=== PATIENT | male | born 1955 | race African-American/Black ===

== ENCOUNTER 2017-09-19 14:46 | Emergency (ER) | payer OTHER ==
[~2017-09-19] VITALS: Ht 175.3 cm; Wt 72.6 kg
[2017-09-19 14:53] VITALS: BP 110/62
--- NOTE | 2017-09-19 14:56 | NUR ---
PATIENT TAKEN TO ER BED VIA EMS
--- NOTE | 2017-09-19 15:05 | NUR ---
PT BIBA, PT DEAF, UNABLE TO ANSWER QUESTIONS UNLESS WRITTEN DOWN. PT AAOX3, CONFUSED AT TIMES. REPORTS BEING DISCHARGED FROM [facility] 2 DAYS AGO FOR PNA, HAS BEEN HOMELESS SINCE LAST NIGHT. RESP EVEN AND UNALBORED, DENIES ANY PAIN , JUST GENERLAIZED WEAKNESS. ABD SOFT, NT. PT ABLE TO FOLLOW SIMPLE COMMANDS. AWARE THAT URINE SPECIMEN IS NEEDED. IV ESTABLISHED AND NS INFUSING ORDERED.
--- NOTE | 2017-09-19 15:12 | NUR ---
DR ACOSTA IN ROOM FOR EXAM.
[2017-09-19] MEDS ORDERED: NACL 0.9% 500 ML IV ONE ×2 (15:15)
[2017-09-19 15:44] LABS: BASOPHILS # (AUTO) 0.2 K/uL (0.00-0.22); BASOPHILS % (AUTO) 1.9 % (0.0-2.0); EOSINOPHILS # (AUTO) 0.1 K/uL (0-0.4); HEMATOCRIT 38.3 % (36-52); HEMOGLOBIN 12.8 g/dL (12.0-18.0); LYMPHOCYTES # (AUTO) 2.5 K/uL (2.0-11.5); MEAN CORPUSCULAR HEMOGLOBIN 30 pg (27-31); MEAN CORPUSCULAR HGB CONC 33 g/dL (33-37); MEAN CORPUSCULAR VOLUME 90 fL (80-94); MONOCYTES # (AUTO) 1.3 K/uL (0.8-1.0); MONOCYTES % (AUTO) 11.6 % (1.7-9.3); NEUTROPHILS % (AUTO) 62.5 % (42.2-75.2); PLATELET COUNT (AUTO) 559 K/uL (140-450); RED BLOOD CELL COUNT(AUTO) 4.26 MIL/uL (4.20-6.10); RED CELL DISTRIBUTION WIDTH 12.6 % (11.6-13.7); WHITE BLOOD COUNT (AUTO) 11.1 K/uL (4.8-10.8)
[2017-09-19 16:14] LABS: PROTHROMBIN TIME 11.6 secs (10.8-13.4)
[2017-09-19 16:15] LABS: ANION GAP 11.5 (8-16); CARBON DIOXIDE 28.4 mmol/L (21-32); CREATININE 1.1 mg/dL (0.7-1.3); POTASSIUM 3.9 mmol/L (3.5-5.1)
--- NOTE | 2017-09-19 16:21 | NUR ---
PT BACK FROM CT SCAN VIA [facility]
[2017-09-19 16:24] LABS: ACETAMINOPHEN < 0.5 ug/ml (10-30); SALICYLATE < 2.8 mg/dL (2.8-20.0)
[2017-09-19 16:27] LABS: ALBUMIN 2.9 g/dL (3.4-5.0); TOTAL BILIRUBIN 0.2 mg/dL (0.0-1.0)
--- NOTE | 2017-09-19 19:05 | NUR ---
NO CHANGES IN CONDITON, PT IN NAD. PLAYING WITH HIS PHONE. NO DISTRESS. AWAIITNG URINE RESULTS
--- NOTE | 2017-09-19 19:30 | NUR ---
PT IN BED, COMFORT NEEDS MET, WILL CONTINUE TO MONITOR.
[2017-09-19 20:20] LABS: APPEARANCE,URINE CLEAR (CLEAR); BILIRUBIN,URINE NEGATIVE (NEGATIVE); BLOOD, URINE TRACE-L (NEGATIVE); COLOR,URINE YELLOW (YELLOW); LEUKOCYTE ESTERASE ,URINE NEGATIVE (NEGATIVE); NITRITE, URINE NEGATIVE (NEGATIVE); UGLUCOSE NEGATIVE (NEGATIVE)
[2017-09-19 20:21] LABS: RBC,URINE 3-10 (FEW) /HPF (0-5); WBC,URINE 0-5 (RARE) /HPF (0-5)
[2017-09-19 20:39] LABS: BARBITURATE, URINE NEG. ng/ml (NEG <=200); BENZODIAZEPINE, URINE NEG. ng/mL (NEG <=200); CANNABINOID, URINE NEG. ng/mL (NEG <=50); COCAINE, URINE NEG. ng/mL (NEG <=300); OPIATE, URINE NEG. ng/mL (NEG <=2000); PHENCYCLIDINE SCREEN,URINE NEG. ng/mL (NEG <=25)
--- NOTE | 2017-09-19 21:00 | NUR ---
PT IN BED RESTING, WILL CONTINUE TO MONITOR.
--- NOTE | 2017-09-19 21:20 | NUR ---
500ML INFUSION OF N.S. ENDED AT 2120, 500 ML INFUSED.
[2017-09-19 21:39] VITALS: BP 121/78
--- NOTE | 2017-09-19 21:40 | NUR ---
Patient discharged with v/s stable. Written and verbal after care instructions given and explained. Patient verbalized understanding. Ambulatory with steady gait. All questions addressed prior to discharge. Advised to follow up with PMD. PT GIVEN HOMELESS PACKET AND PROVIED W/ BUS PASS.
== END 2017-09-19 21:39 | disposition home or self-care (01) ==
LOC: MED 14:46
DX: R55 Syncope and collapse (principal); Z59.0 Homelessness
CPT/HCPCS: 36415; 70450; 71045; 80053; 80305; 81001; 83605; 83880; 84484; 85025; 85610; 85730; 87040; 87086; 93005; 96360; 96361; 99285; G0480; G0482; J7030; Q0092